=== PATIENT | female | born 1980 | race American Indian/Alaskan Native ===

== ENCOUNTER 2018-04-26 16:53 | Outpatient (CLI) | payer BC, MEDICAID ==
[2018-04-26] MEDS ORDERED: SUBLIMAZE IV PRN (16:57)
[2018-04-26] MEDS ORDERED: MINERAL OIL PO PRN (16:57)
[2018-04-26] MEDS ORDERED: XYLOCAINE 2% INFILTRATI ONE (16:57)
[2018-04-26] MEDS ORDERED: ePHEDrine SULFATE IV PRN (16:57)
[2018-04-26] MEDS ORDERED: BRETHINE SUB-Q PRN (16:57)
[2018-04-26] MEDS ORDERED: POLYCILLIN/NS 2 GM/100 ML 2 GM/100 ML BAG IV ONE (16:57)
[2018-04-26] MEDS ORDERED: PITOCin/NS 30 UNIT/500ML 30 UNITS/500 ML BAG IV SCH (17:00)
[2018-04-26] MEDS ORDERED: LACTATED RINGERS 1,000 ML IV SCH (17:00)
[2018-04-26] MEDS ORDERED: PITOCin/NS 20 UNIT/1000ML DRIP 20 UNITS/1,000 ML BAG IV SCH (17:00)
--- NOTE | 2018-04-26 17:08 | History and Physical Report ---
History of Present Illness Date of examination: 04/26/18 Chief complaint: [facility] recommends delivery for this patient @ 38+6 weeks d/t nonreassuring NST in office. Per Dr. Yi, BPP 07/03 but patient had a variable on the NST History of present illness: EDC Confirmation: 05/04/2018 Past History : 4 Term Births: 2 Premature Births: 1 Living Children: 3 Para: 3 Mult. Births: 0 Prev : 0 Aborta: 0 Elect. Ab: 0 Spont. 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 of genital herpes: no Partner hx. of genital herpes: no Rash, Viral, or Febrile illness since last LMP? no Genetic History ADVANCED MATERNAL AGE Congenital Heart Defect: Mom: no Dad: no Deric Disease: Mom: no Dad: no Thalassemia Mom: no Dad: no Neural Tube Defect Mom: no Dad: no Down's Syndrome Mom: no Dad: no Thony-Sachs Mom: no Dad: no Sickle Cell Disease/Trait Mom: no Dad: no Hemophilia Mom: no Dad: no Muscular Dystrophy Mom: no Dad: no Cystic Fibrosis Mom: no Dad: no [place] Chorea Mom: no Dad: no Mental Retardation Mom: no Dad: no Fragile X Mom: no Dad: no Other Genetic/Chromosomal Disorder Mom: no Dad: no Child w/other defect Mom: no Dad: no Enviromental Exposures Xray Exposure: no Medication, drug, or alcohol use since LMP: no Chemical/Other Exposure: no Exposure to Cat Liter: yes Hx of Parvovirus (Fifth Disease): no Occupational Exposure to Children: none Active Medications (reviewed today): None Current Allergies (reviewed today): No known allergies Past History Past Medical History: other (see HPI) Past Surgical History: other (see HPI) ACCOUNT ASSISTANT History: other (see HPI) Family/Genetic History: other (see HPI) - Obstetrical History Expected Date of Delivery: 05/04/18 Actual Gestation: 38 Week(s) 6 Day(s) : 4 Para: 3 Hx # Term Pregnancies: 2 Number of Pregnancies: 1 Spontaneous Abortions: 0 Induced : 0 Number of Living Children: 3 Medications and Allergies Allergies Allergy/AdvReac Type Severity Reaction Status Date / Time No Known Allergies Allergy Unverified 04/26/18 17:07 Review of Systems All systems: negative Results Result Diagrams: 04/26/18 21:17 All other labs normal. Assessment and Plan 28y/o @ 38+6 weeks, seeing [facility] for maternal obesity and AMA. EFW 9lbs today and NST with variables noted in FHT. Dr. Yi called office and recommended delivery or at least extended monitoring. Admission orders in EMR. - Patient Problems (1) GBS screening not performed Current Visit: Yes Status: Acute Plan to address problem: test performed in office but results not available at this time. Will treat with Ampicillin q4h until delivery (2) Non-reassuring electronic monitoring tracing Current Visit: Yes Status: Acute (3) Obesity Current Visit: Yes Status: Acute (4) Advanced maternal age (AMA) in Current Visit: Yes Status: Acute (5) 38 weeks gestation of Current Visit: Yes Status: Acute
[2018-04-26 18:10] VITALS: BP 113/64
[2018-04-26] MEDS ORDERED: AMPICILLIN/NS 1 GM/50 ML 1 GM/50 ML BAG IV SCH (21:03)
[2018-04-26 21:47] LABS: Hematocrit 33.6 % (30.3-42.9); Hemoglobin 11.1 gm/dl (10.1-14.3); Mean Corpuscular HGB Conc 33 % (30-34); Mean Corpuscular Hemoglobin 29 pg (28-32); Mean Corpuscular Volume 88 fl (79-97); Platelet Count 231 K/mm3 (140-440); Red Blood Count 3.85 M/mm3 (3.65-5.03); Red Cell Distribution Width 16.9 % (13.2-15.2)
--- NOTE | 2018-04-26 22:17 | Event Note ---
Date: 04/26/18 Patient has been in triage x5 hours, CAT 1 tracing with accels. Pt reports active movement. she states she does not want to be induced and would like to go home. Dr. Alvarado made aware, Dr. Yi called via answering service for recommendations.
--- NOTE | 2018-04-26 23:07 | Event Note ---
Date: 04/26/18 Dr. Yi did not call back despite 2 attempts through answering service. Patient is anxious to go home and insists she does not want to be induced. Dr. Alvarado updated, he agreed to let her go home with [facility] and instructions to f/ u in the office early next week.
== END 2018-04-26 23:10 | disposition home or self-care (01) ==
LOC: TRG 16:53
PROVIDERS: ATTEND Obstetrics & Gynecology
DX: O47.1 False labor at or after 37 completed weeks of gestation (principal); O99.213 Obesity complicating pregnancy, third trimester; Z3A.38 38 weeks gestation of pregnancy
CPT/HCPCS: 36415; 59025; 85027; 86592; 86850; 86900; 86901

== ENCOUNTER 2018-05-06 18:09 | Inpatient (IN) | payer BC, MEDICAID ==
--- NOTE | 2018-05-06 19:27 | History and Physical Report ---
History of Present Illness Date of examination: 05/06/18 Date of admission: 05/06/18 18:09 History of present illness: Patient admitted for induction care complicated by AMA and morbid obesity. NST in office today with deceleration Menstrual History Regularity: irregular Menses every: 28 days Duration: 3to 4 LMP: 08/23/2017 LMP reliability: definite LMP character: normal test type: urine test Date: 02/07/2018 EDC Calculations EDC Confirmation: 05/04/2018 Past History : 4 Term Births: 2 Premature Births: 1 Living Children: 3 Para: 3 Mult. Births: 0 Prev : 0 Aborta: 0 Elect. Ab: 0 Spont. 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 of genital herpes: no Partner hx. of genital herpes: no Rash, Viral, or Febrile illness since last LMP? no Genetic History ADVANCED MATERNAL AGE Congenital Heart Defect: Mom: no Dad: no Deric Disease: Mom: no Dad: no Thalassemia Mom: no Dad: no Neural Tube Defect Mom: no Dad: no Down's Syndrome Mom: no Dad: no Thony-Sachs Mom: no Dad: no Sickle Cell Disease/Trait Mom: no Dad: no Hemophilia Mom: no Dad: no Muscular Dystrophy Mom: no Dad: no Cystic Fibrosis Mom: no Dad: no [place] Chorea Mom: no Dad: no Mental Retardation Mom: no Dad: no Fragile X Mom: no Dad: no Other Genetic/Chromosomal Disorder Mom: no Dad: no Child w/other defect Mom: no Dad: no Enviromental Exposures Xray Exposure: no Medication, drug, or alcohol use since LMP: no Chemical/Other Exposure: no Exposure to Cat Liter: yes Hx of Parvovirus (Fifth Disease): no Occupational Exposure to Children: none Active Medications (reviewed today): None Current Allergies (reviewed today): No known allergies Past History Past Medical History: other (See HPI) Past Surgical History: other (See HPI) 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) Family/Genetic History: other (See HPI) Social history: other (See HPI) - Obstetrical History Expected Date of Delivery: 05/04/18 Actual Gestation: 40 Week(s) 3 Day(s) : 4 Para: 3 Hx # Term Pregnancies: 2 Number of Pregnancies: 1 Spontaneous Abortions: 0 Induced : 0 Number of Living Children: 3 Medications and Allergies Allergies Allergy/AdvReac Type Severity Reaction Status Date / Time No Known Allergies Allergy Unverified 04/26/18 17:07 Home Medications Medication Instructions Recorded Confirmed Last Taken Type Amoxicillin 1 tab PO Q8HR 05/06/18 05/06/18 05/06/18 09:00 History Ferrous Gluconate [Iron 256 MG tab] 256 mg PO QDAY 05/06/18 05/06/18 05/06/18 09 :00 History Pnv No.95/Ferrous Fum/Folic AC 1 tab PO QDAY 05/06/18 05/06/18 05/06/18 09:00 History [ Formula Tablet] - Vital Signs Vital signs: Vital Signs Pulse BP 99 H 107/64 05/06/18 18:41 05/06/18 18:41 Temp Pulse Resp BP Pulse Ox 97.8 F 80 107/64 99 05/06/18 18:43 05/06/18 19:24 05/06/18 18:41 05/06/18 19:24 - Physical Exam Breasts: Positive: deferred Lungs: Positive: Normal air movement Abdomen: Positive: normal appearance, soft Cervix: Positive: other (Per RN) Uterus: Positive: enlarged - Obstetrical FHR: category 1 Uterine Contraction Pattern: Irregular Results Result Diagrams: 05/06/18 19:43 All other labs normal. Assessment and Plan - Patient Problems (1) Post-term , 40-42 weeks of gestation Current Visit: Yes Status: Acute (2) NST (non-stress test) with decelerations Current Visit: Yes Status: Acute Plan to address problem: RN states tracing without deceleration. Will monitor. RN states exam with Partida of 4-5 .Will induce cervidil (3) Advanced maternal age (AMA) in Current Visit: No Status: Acute (4) Obesity Current Visit: No Status: Acute Qualifiers: Obesity type: due to excess calories Body mass index: BMI 38.0-38.9
[2018-05-06] MEDS ORDERED: BRETHINE IVP PRN (20:37)
[2018-05-06] MEDS ORDERED: PHENERGAN PO PRN (20:37)
[2018-05-06] MEDS ORDERED: XYLOCAINE 2% INFILTRATI ONE (20:37)
[2018-05-06] MEDS ORDERED: STADOL IV PRN (20:37)
[2018-05-06] MEDS ORDERED: PITOCin/NS 20 UNIT/1000ML DRIP 20 UNITS/1,000 ML BAG IV SCH (21:00)
[2018-05-06 21:27] LABS: Hematocrit 31.6 % (30.3-42.9); Hemoglobin 10.3 gm/dl (10.1-14.3); Mean Corpuscular HGB Conc 33 % (30-34); Mean Corpuscular Hemoglobin 29 pg (28-32); Mean Corpuscular Volume 89 fl (79-97); Platelet Count 207 K/mm3 (140-440); Red Blood Count 3.54 M/mm3 (3.65-5.03); Red Cell Distribution Width 18.1 % (13.2-15.2)
[2018-05-06] MEDS ORDERED: CERVIDIL VG ONE (21:37)
[2018-05-07] MEDS: LACTATED RINGERS 1,000 ML IV SCH ×2 (02:55→07:53)
--- NOTE | 2018-05-07 05:55 | Progress Note ---
Assessment and Plan Pt c/o ctx worsening SVE 4,70,-2 Cervidil removed. OOB for AM care Will start pitocin @ 0700. Pt agrees to POC Subjective - Subjective Date of service: 05/07/18 (Cervidil) Principal diagnosis: IUP @ 40+ weeks IOL Patient reports: movement normal, contractions Objective - Vital Signs Vital Signs: Vital Signs - 12hr 05/06/18 05/06/18 05/06/18 18:41 18:43 18:49 Temperature 97.8 F Pulse Rate 99 H 86 Respiratory Rate Blood Pressure 107/64 Blood Pressure [Right] O2 Sat by Pulse 97 Oximetry 05/06/18 05/06/18 05/06/18 18:54 18:59 19:04 Temperature Pulse Rate 93 H 91 H 95 H Respiratory Rate Blood Pressure Blood Pressure [Right] O2 Sat by Pulse 96 97 98 Oximetry 05/06/18 05/06/18 05/06/18 19:09 19:14 19:19 Temperature Pulse Rate 88 82 76 Respiratory Rate Blood Pressure Blood Pressure [Right] O2 Sat by Pulse 98 97 98 Oximetry 05/06/18 05/06/18 05/06/18 19:24 19:29 19:34 Temperature Pulse Rate 80 81 80 Respiratory Rate Blood Pressure Blood Pressure [Right] O2 Sat by Pulse 99 98 98 Oximetry 05/06/18 05/06/18 05/06/18 19:39 19:44 19:49 Temperature Pulse Rate 87 76 75 Respiratory Rate Blood Pressure Blood Pressure [Right] O2 Sat by Pulse 98 97 96 Oximetry 05/06/18 05/06/18 05/06/18 19:54 19:58 19:59 Temperature 98.5 F Pulse Rate 76 73 Respiratory 18 Rate Blood Pressure Blood Pressure [Right] O2 Sat by Pulse 97 95 Oximetry 05/06/18 05/06/18 05/06/18 20:04 20:05 20:09 Temperature Pulse Rate 79 85 81 Respiratory Rate Blood Pressure Blood Pressure [Right] O2 Sat by Pulse 95 94 97 Oximetry 05/06/18 05/06/18 05/06/18 20:14 20:19 20:24 Temperature Pulse Rate 77 67 72 Respiratory Rate Blood Pressure Blood Pressure [Right] O2 Sat by Pulse 96 98 96 Oximetry 05/06/18 05/06/18 05/06/18 20:29 20:34 20:39 Temperature Pulse Rate 76 72 73 Respiratory Rate Blood Pressure Blood Pressure [Right] O2 Sat by Pulse 97 98 96 Oximetry 05/06/18 05/06/18 05/06/18 20:44 20:49 20:54 Temperature Pulse Rate 78 73 76 Respiratory Rate Blood Pressure Blood Pressure [Right] O2 Sat by Pulse 96 97 96 Oximetry 05/06/18 05/06/18 05/06/18 21:00 21:05 21:10 Temperature Pulse Rate 70 78 78 Respiratory Rate Blood Pressure Blood Pressure [Right] O2 Sat by Pulse 99 98 98 Oximetry 05/06/18 05/06/18 05/06/18 21:15 21:20 21:33 Temperature Pulse Rate 68 73 76 Respiratory Rate Blood Pressure Blood Pressure [Right] O2 Sat by Pulse 98 99 99 Oximetry 05/06/18 05/06/18 05/06/18 21:38 21:43 21:48 Temperature Pulse Rate 75 70 74 Respiratory Rate Blood Pressure Blood Pressure [Right] O2 Sat by Pulse 98 97 97 Oximetry 05/06/18 05/06/18 05/06/18 21:53 21:58 22:03 Temperature Pulse Rate 69 72 76 Respiratory Rate Blood Pressure Blood Pressure [Right] O2 Sat by Pulse 98 97 96 Oximetry 05/06/18 05/06/18 05/06/18 22:08 22:13 22:18 Temperature Pulse Rate 67 77 65 Respiratory Rate Blood Pressure Blood Pressure [Right] O2 Sat by Pulse 98 96 97 Oximetry 05/06/18 05/06/18 05/06/18 22:23 22:28 22:33 Temperature Pulse Rate 69 76 74 Respiratory Rate Blood Pressure Blood Pressure [Right] O2 Sat by Pulse 98 98 95 Oximetry 05/06/18 05/06/18 05/06/18 22:39 22:44 22:49 Temperature Pulse Rate 71 75 74 Respiratory Rate Blood Pressure Blood Pressure [Right] O2 Sat by Pulse 98 96 97 Oximetry 05/06/18 05/06/18 05/06/18 22:54 22:59 23:00 Temperature 97.2 F L Pulse Rate 80 84 Respiratory 16 Rate Blood Pressure Blood Pressure 117/63 [Right] O2 Sat by Pulse 96 97 Oximetry 05/06/18 05/06/18 05/06/18 23:04 23:09 23:14 Temperature Pulse Rate 73 76 72 Respiratory Rate Blood Pressure 117/63 Blood Pressure [Right] O2 Sat by Pulse 96 97 97 Oximetry 05/06/18 05/06/18 05/06/18 23:19 23:24 23:29 Temperature Pulse Rate 72 72 74 Respiratory Rate Blood Pressure Blood Pressure [Right] O2 Sat by Pulse 96 96 98 Oximetry 05/06/18 05/06/18 05/06/18 23:34 23:39 23:44 Temperature Pulse Rate 74 72 81 Respiratory Rate Blood Pressure Blood Pressure [Right] O2 Sat by Pulse 97 96 97 Oximetry 05/06/18 05/06/18 05/06/18 23:49 23:54 23:59 Temperature Pulse Rate 63 63 72 Respiratory Rate Blood Pressure Blood Pressure [Right] O2 Sat by Pulse 96 97 97 Oximetry 05/07/18 05/07/18 05/07/18 00:04 00:09 00:14 Temperature Pulse Rate 67 70 69 Respiratory Rate Blood Pressure Blood Pressure [Right] O2 Sat by Pulse 95 97 97 Oximetry 05/07/18 05/07/18 05/07/18 00:19 00:24 00:29 Temperature Pulse Rate 72 72 71 Respiratory Rate Blood Pressure Blood Pressure [Right] O2 Sat by Pulse 96 97 98 Oximetry 05/07/18 05/07/18 05/07/18 00:34 00:39 00:44 Temperature Pulse Rate 76 71 77 Respiratory Rate Blood Pressure Blood Pressure [Right] O2 Sat by Pulse 96 97 97 Oximetry 05/07/18 05/07/18 05/07/18 00:49 00:54 00:59 Temperature Pulse Rate 78 72 64 Respiratory Rate Blood Pressure Blood Pressure [Right] O2 Sat by Pulse 97 96 97 Oximetry 05/07/18 05/07/18 05/07/18 01:04 01:09 01:14 Temperature Pulse Rate 68 71 68 Respiratory Rate Blood Pressure Blood Pressure [Right] O2 Sat by Pulse 97 97 97 Oximetry 05/07/18 05/07/18 05/07/18 01:23 01:28 01:33 Temperature Pulse Rate 73 80 72 Respiratory Rate Blood Pressure Blood Pressure [Right] O2 Sat by Pulse 99 97 95 Oximetry 05/07/18 05/07/18 05/07/18 01:38 01:43 01:48 Temperature Pulse Rate 67 75 75 Respiratory Rate Blood Pressure Blood Pressure [Right] O2 Sat by Pulse 97 96 97 Oximetry 0805/07/18 05/07/18 01:53 01:58 02:03 Temperature Pulse Rate 74 77 95 H Respiratory Rate Blood Pressure Blood Pressure [Right] O2 Sat by Pulse 96 96 96 Oximetry 05/07/18 05/07/18 05/07/18 02:07 02:08 02:13 Temperature Pulse Rate 69 71 71 Respiratory Rate Blood Pressure Blood Pressure [Right] O2 Sat by Pulse 94 96 95 Oximetry 05/07/18 05/07/18 05/07/18 02:18 02:21 02:23 Temperature Pulse Rate 72 71 72 Respiratory Rate Blood Pressure Blood Pressure [Right] O2 Sat by Pulse 95 94 95 Oximetry 05/07/18 05/07/18 05/07/18 02:28 02:31 02:33 Temperature Pulse Rate 76 68 68 Respiratory Rate Blood Pressure Blood Pressure [Right] O2 Sat by Pulse 97 94 98 Oximetry 05/07/18 05/07/18 05/07/18 02:38 02:43 02:48 Temperature Pulse Rate 75 73 80 Respiratory Rate Blood Pressure Blood Pressure [Right] O2 Sat by Pulse 97 97 97 Oximetry 05/07/18 05/07/18 05/07/18 02:51 02:53 02:55 Temperature 97.7 F Pulse Rate 72 80 Respiratory 16 Rate Blood Pressure 110/59 Blood Pressure [Right] O2 Sat by Pulse 98 Oximetry 05/07/18 05/07/18 05/07/18 02:58 03:03 03:08 Temperature Pulse Rate 74 71 76 Respiratory Rate Blood Pressure Blood Pressure [Right] O2 Sat by Pulse 96 96 95 Oximetry 05/07/18 05/07/18 05/07/18 03:11 03:13 03:17 Temperature Pulse Rate 71 75 73 Respiratory Rate Blood Pressure Blood Pressure [Right] O2 Sat by Pulse 93 94 94 Oximetry 05/07/18 05/07/18 05/07/18 03:18 03:23 03:24 Temperature Pulse Rate 84 74 88 Respiratory Rate Blood Pressure Blood Pressure [Right] O2 Sat by Pulse 96 95 94 Oximetry 05/07/18 05/07/18 05/07/18 03:28 03:30 03:33 Temperature Pulse Rate 81 71 71 Respiratory Rate Blood Pressure Blood Pressure [Right] O2 Sat by Pulse 96 94 95 Oximetry 05/07/18 05/07/18 05/07/18 03:37 03:38 03:43 Temperature Pulse Rate 85 77 90 Respiratory Rate Blood Pressure Blood Pressure [Right] O2 Sat by Pulse 94 95 94 Oximetry 05/07/18 05/07/18 05/07/18 03:48 03:49 03:53 Temperature Pulse Rate 86 88 78 Respiratory Rate Blood Pressure Blood Pressure [Right] O2 Sat by Pulse 96 93 95 Oximetry 05/07/18 05/07/18 05/07/18 03:58 03:59 04:03 Temperature Pulse Rate 69 70 69 Respiratory Rate Blood Pressure Blood Pressure [Right] O2 Sat by Pulse 95 94 96 Oximetry 05/07/18 05/07/18 05/07/18 04:07 04:08 04:13 Temperature Pulse Rate 82 74 82 Respiratory Rate Blood Pressure Blood Pressure [Right] O2 Sat by Pulse 94 97 97 Oximetry 05/07/18 05/07/18 05/07/18 04:18 04:23 04:25 Temperature Pulse Rate 81 98 H 87 Respiratory Rate Blood Pressure Blood Pressure [Right] O2 Sat by Pulse 96 97 93 Oximetry 05/07/18 05/07/18 05/07/18 04:28 04:31 04:33 Temperature Pulse Rate 73 74 76 Respiratory Rate Blood Pressure Blood Pressure [Right] O2 Sat by Pulse 93 94 94 Oximetry 05/07/18 05/07/18 05/07/18 04:38 04:43 04:45 Temperature Pulse Rate 74 72 80 Respiratory Rate Blood Pressure Blood Pressure [Right] O2 Sat by Pulse 95 95 94 Oximetry 05/07/18 05/07/18 05/07/18 04:48 04:50 04:53 Temperature Pulse Rate 80 82 77 Respiratory Rate Blood Pressure Blood Pressure [Right] O2 Sat by Pulse 94 94 96 Oximetry 05/07/18 05/07/18 05/07/18 04:58 05:03 05:08 Temperature Pulse Rate 79 74 78 Respiratory Rate Blood Pressure Blood Pressure [Right] O2 Sat by Pulse 96 94 93 Oximetry 05/07/18 05/07/18 05/07/18 05:12 05:13 05:18 Temperature Pulse Rate 72 76 79 Respiratory Rate Blood Pressure Blood Pressure [Right] O2 Sat by Pulse 94 93 93 Oximetry 05/07/18 05/07/18 05/07/18 05:21 05:23 05:28 Temperature Pulse Rate 75 73 71 Respiratory Rate Blood Pressure Blood Pressure [Right] O2 Sat by Pulse 94 94 96 Oximetry 05/07/18 05/07/18 05/07/18 05:31 05:33 05:38 Temperature Pulse Rate 73 78 75 Respiratory Rate Blood Pressure Blood Pressure [Right] O2 Sat by Pulse 94 94 89 Oximetry 05/07/18 05/07/18 05:43 05:48 Temperature Pulse Rate 78 80 Respiratory Rate Blood Pressure Blood Pressure [Right] O2 Sat by Pulse 89 95 Oximetry - Exam Breasts: deferred Cardiovascular: Regular rate Lungs: Normal air movement Abdomen: Present: normal appearance, soft. Absent: distention, tenderness Uterus: Present: normal FHR: auscultation normal Uterine Contraction Monitor Mode: External Cervical Dilatation: 4 (cervidil removed) Cervical Effacement Percentage: 70 station: -2 Uterine Contraction Pattern: Regular Uterine Tone Measurement Phase: Resting Uterine Contraction Intensity: Moderate Extremities: edema Deep Tendon Reflex Grade: Normal +2 - Labs Labs: Abnormal Labs 05/06/18 19:43 RBC 3.54 L RDW 18.1 H Laboratory Results - last 24 hr 05/06/18 05/06/18 19:43 19:43 WBC 5.7 RBC 3.54 L Hgb 10.3 Hct 31.6 MCV 89 MCH 29 MCHC 33 RDW 18.1 H Plt Count 207 Blood Type O POSITIVE Antibody Screen Negative
[2018-05-07] MEDS ORDERED: PITOCin/NS 30 UNIT/500ML 30 UNITS/500 ML BAG IV SCH (07:00)
--- NOTE | 2018-05-07 10:40 | Progress Note ---
Assessment and Plan Finishing epidural on my arrival SVE 10,100,0 BBOW Variables with ctx Anticipate delivery. Subjective - Subjective Date of service: 05/07/18 (epidural placed) Principal diagnosis: IUP @ 40+ weeks IOL Patient reports: movement normal, contractions Objective - Vital Signs Vital Signs: Vital Signs - 12hr 05/06/18 05/06/18 05/06/18 22:44 22:49 22:54 Temperature Pulse Rate 75 74 80 Respiratory Rate Blood Pressure Blood Pressure [Right] O2 Sat by Pulse 96 97 96 Oximetry 05/06/18 05/06/18 05/06/18 22:59 23:00 23:04 Temperature 97.2 F L Pulse Rate 84 73 Respiratory 16 Rate Blood Pressure 117/63 Blood Pressure 117/63 [Right] O2 Sat by Pulse 97 96 Oximetry 05/06/18 05/06/18 05/06/18 23:09 23:14 23:19 Temperature Pulse Rate 76 72 72 Respiratory Rate Blood Pressure Blood Pressure [Right] O2 Sat by Pulse 97 97 96 Oximetry 05/06/18 05/06/18 05/06/18 23:24 23:29 23:34 Temperature Pulse Rate 72 74 74 Respiratory Rate Blood Pressure Blood Pressure [Right] O2 Sat by Pulse 96 98 97 Oximetry 05/06/18 05/06/18 05/06/18 23:39 23:44 23:49 Temperature Pulse Rate 72 81 63 Respiratory Rate Blood Pressure Blood Pressure [Right] O2 Sat by Pulse 96 97 96 Oximetry 05/06/18 05/06/18 05/07/18 23:54 23:59 00:04 Temperature Pulse Rate 63 72 67 Respiratory Rate Blood Pressure Blood Pressure [Right] O2 Sat by Pulse 97 97 95 Oximetry 05/07/18 05/07/18 05/07/18 00:09 00:14 00:19 Temperature Pulse Rate 70 69 72 Respiratory Rate Blood Pressure Blood Pressure [Right] O2 Sat by Pulse 97 97 96 Oximetry 05/07/18 05/07/18 05/07/18 00:24 00:29 00:34 Temperature Pulse Rate 72 71 76 Respiratory Rate Blood Pressure Blood Pressure [Right] O2 Sat by Pulse 97 98 96 Oximetry 05/07/18 05/07/18 05/07/18 00:39 00:44 00:49 Temperature Pulse Rate 71 77 78 Respiratory Rate Blood Pressure Blood Pressure [Right] O2 Sat by Pulse 97 97 97 Oximetry 05/07/18 05/07/18 05/07/18 00:54 00:59 01:04 Temperature Pulse Rate 72 64 68 Respiratory Rate Blood Pressure Blood Pressure [Right] O2 Sat by Pulse 96 97 97 Oximetry 05/07/18 05/07/18 05/07/18 01:09 01:14 01:23 Temperature Pulse Rate 71 68 73 Respiratory Rate Blood Pressure Blood Pressure [Right] O2 Sat by Pulse 97 97 99 Oximetry 05/07/18 05/07/18 05/07/18 01:28 01:33 01:38 Temperature Pulse Rate 80 72 67 Respiratory Rate Blood Pressure Blood Pressure [Right] O2 Sat by Pulse 97 95 97 Oximetry 05/07/18 05/07/18 05/07/18 01:43 01:48 01:53 Temperature Pulse Rate 75 75 74 Respiratory Rate Blood Pressure Blood Pressure [Right] O2 Sat by Pulse 96 97 96 Oximetry 05/07/18 05/07/18 05/07/18 01:58 02:03 02:07 Temperature Pulse Rate 77 95 H 69 Respiratory Rate Blood Pressure Blood Pressure [Right] O2 Sat by Pulse 96 96 94 Oximetry 05/07/18 05/07/18 05/07/18 02:08 02:13 02:18 Temperature Pulse Rate 71 71 72 Respiratory Rate Blood Pressure Blood Pressure [Right] O2 Sat by Pulse 96 95 95 Oximetry 05/07/18 05/07/18 05/07/18 02:21 02:23 02:28 Temperature Pulse Rate 71 72 76 Respiratory Rate Blood Pressure Blood Pressure [Right] O2 Sat by Pulse 94 95 97 Oximetry 05/07/18 05/07/18 05/07/18 02:31 02:33 02:38 Temperature Pulse Rate 68 68 75 Respiratory Rate Blood Pressure Blood Pressure [Right] O2 Sat by Pulse 94 98 97 Oximetry 05/07/18 05/07/18 05/07/18 02:43 02:48 02:51 Temperature 97.7 F Pulse Rate 73 80 Respiratory 16 Rate Blood Pressure Blood Pressure [Right] O2 Sat by Pulse 97 97 Oximetry 05/07/18 05/07/18 05/07/18 02:53 02:55 02:58 Temperature Pulse Rate 72 80 74 Respiratory Rate Blood Pressure 110/59 Blood Pressure [Right] O2 Sat by Pulse 98 96 Oximetry 08/05/07/18 05/07/18 03:03 03:08 03:11 Temperature Pulse Rate 71 76 71 Respiratory Rate Blood Pressure Blood Pressure [Right] O2 Sat by Pulse 96 95 93 Oximetry 05/07/18 05/07/18 05/07/18 03:13 03:17 03:18 Temperature Pulse Rate 75 73 84 Respiratory Rate Blood Pressure Blood Pressure [Right] O2 Sat by Pulse 94 94 96 Oximetry 05/07/18 05/07/18 05/07/18 03:23 03:24 03:28 Temperature Pulse Rate 74 88 81 Respiratory Rate Blood Pressure Blood Pressure [Right] O2 Sat by Pulse 95 94 96 Oximetry 05/07/18 05/07/18 05/07/18 03:30 03:33 03:37 Temperature Pulse Rate 71 71 85 Respiratory Rate Blood Pressure Blood Pressure [Right] O2 Sat by Pulse 94 95 94 Oximetry 05/07/18 05/07/18 05/07/18 03:38 03:43 03:48 Temperature Pulse Rate 77 90 86 Respiratory Rate Blood Pressure Blood Pressure [Right] O2 Sat by Pulse 95 94 96 Oximetry 05/07/18 05/07/18 05/07/18 03:49 03:53 03:58 Temperature Pulse Rate 88 78 69 Respiratory Rate Blood Pressure Blood Pressure [Right] O2 Sat by Pulse 93 95 95 Oximetry 05/07/18 05/07/18 05/07/18 03:59 04:03 04:07 Temperature Pulse Rate 70 69 82 Respiratory Rate Blood Pressure Blood Pressure [Right] O2 Sat by Pulse 94 96 94 Oximetry 05/07/18 05/07/18 05/07/18 04:08 04:13 04:18 Temperature Pulse Rate 74 82 81 Respiratory Rate Blood Pressure Blood Pressure [Right] O2 Sat by Pulse 97 97 96 Oximetry 05/07/18 05/07/18 05/07/18 04:23 04:25 04:28 Temperature Pulse Rate 98 H 87 73 Respiratory Rate Blood Pressure Blood Pressure [Right] O2 Sat by Pulse 97 93 93 Oximetry 05/07/18 05/07/18 05/07/18 04:31 04:33 04:38 Temperature Pulse Rate 74 76 74 Respiratory Rate Blood Pressure Blood Pressure [Right] O2 Sat by Pulse 94 94 95 Oximetry 05/07/18 05/07/18 05/07/18 04:43 04:45 04:48 Temperature Pulse Rate 72 80 80 Respiratory Rate Blood Pressure Blood Pressure [Right] O2 Sat by Pulse 95 94 94 Oximetry 05/07/18 05/07/18 05/07/18 04:50 04:53 04:58 Temperature Pulse Rate 82 77 79 Respiratory Rate Blood Pressure Blood Pressure [Right] O2 Sat by Pulse 94 96 96 Oximetry 05/07/18 05/07/18 05/07/18 05:03 05:08 05:12 Temperature Pulse Rate 74 78 72 Respiratory Rate Blood Pressure Blood Pressure [Right] O2 Sat by Pulse 94 93 94 Oximetry 05/07/18 05/07/18 05/07/18 05:13 05:18 05:21 Temperature Pulse Rate 76 79 75 Respiratory Rate Blood Pressure Blood Pressure [Right] O2 Sat by Pulse 93 93 94 Oximetry 05/07/18 05/07/18 05/07/18 05:23 05:28 05:31 Temperature Pulse Rate 73 71 73 Respiratory Rate Blood Pressure Blood Pressure [Right] O2 Sat by Pulse 94 96 94 Oximetry 05/07/18 05/07/18 05/07/18 05:33 05:38 05:43 Temperature Pulse Rate 78 75 78 Respiratory Rate Blood Pressure Blood Pressure [Right] O2 Sat by Pulse 94 89 89 Oximetry 05/07/18 05/07/18 05/07/18 05:48 06:52 07:54 Temperature 97.3 F L Pulse Rate 80 88 71 Respiratory 22 Rate Blood Pressure Blood Pressure 126/75 [Right] O2 Sat by Pulse 95 97 98 Oximetry 05/07/18 05/07/18 05/07/18 08:08 08:10 08:13 Temperature Pulse Rate 78 75 70 Respiratory Rate Blood Pressure Blood Pressure [Right] O2 Sat by Pulse 96 94 94 Oximetry 05/07/18 05/07/18 05/07/18 08:15 08:18 08:21 Temperature Pulse Rate 70 89 75 Respiratory Rate Blood Pressure Blood Pressure [Right] O2 Sat by Pulse 93 96 94 Oximetry 05/07/18 05/07/18 05/07/18 08:23 08:28 08:30 Temperature Pulse Rate 73 71 65 Respiratory Rate Blood Pressure Blood Pressure [Right] O2 Sat by Pulse 94 86 91 Oximetry 05/07/18 05/07/18 05/07/18 08:35 08:36 10:23 Temperature Pulse Rate 58 L 78 Respiratory Rate Blood Pressure Blood Pressure [Right] O2 Sat by Pulse 49 L 69 L 99 Oximetry 05/07/18 05/07/18 05/07/18 10:24 10:26 10:28 Temperature Pulse Rate 74 74 77 Respiratory Rate Blood Pressure 134/72 125/57 128/60 Blood Pressure [Right] O2 Sat by Pulse 98 Oximetry - Exam Breasts: deferred Cardiovascular: Regular rate Lungs: Normal air movement Abdomen: Present: normal appearance, soft. Absent: distention, tenderness Uterus: Present: normal FHR: auscultation normal, category 1 Uterine Contraction Monitor Mode: External Cervical Dilatation: 10 Cervical Effacement Percentage: 100 station: 0 Uterine Contraction Pattern: Regular Uterine Tone Measurement Phase: Resting Uterine Contraction Intensity: Moderate Extremities: edema Deep Tendon Reflex Grade: Normal +2 - Labs Labs: Abnormal Labs 05/06/18 19:43 RBC 3.54 L RDW 18.1 H Laboratory Results - last 24 hr 05/06/18 05/06/18 19:43 19:43 WBC 5.7 RBC 3.54 L Hgb 10.3 Hct 31.6 MCV 89 MCH 29 MCHC 33 RDW 18.1 H Plt Count 207 Blood Type O POSITIVE Antibody Screen Negative
[2018-05-07] MEDS ORDERED: NARCAN 2 MG/2 ML IV PRN (11:00)
[2018-05-07] MEDS ORDERED: fentaNYL-BUPIV 2 MCG/ML-0.125% 200 MCG/100 ML BAG EPIDURAL SCH (11:00)
[2018-05-07] MEDS ORDERED: DULCOLAX PR PRN (11:12)
[2018-05-07] MEDS ORDERED: BENADRYL PO PRN (11:12)
[2018-05-07] MEDS ORDERED: LANSINOH TP PRN (11:12)
[2018-05-07] MEDS ORDERED: TUCKS PAD TP PRN (11:12)
[2018-05-07] MEDS ORDERED: TYLENOL PO PRN (11:12)
[2018-05-07] MEDS ORDERED: MILK OF MAGNESIA PO PRN (11:12)
[2018-05-07] MEDS ORDERED: ZOFRAN IV PRN (11:12)
--- NOTE | 2018-05-07 11:19 | Procedure Note ---
OB Delivery Note - Delivery Date of Delivery: 05/07/18 Strike Off Machine Operator: DAISY CANDELARIA Estimated blood loss: 300cc - Vaginal Delivery presentation: vertex Delivery position: OA Intrapartum events: none Delivery induction: none Delivery augmentation: pitocin Delivery monitor: external FHT, external uterine Route of delivery: Delivery placenta: spontaneous Delivery cord: nuchal cord, 3 umbilical vessels Episiotomy: none Delivery laceration: none Anesthesia: epidural Delivery comments: live born male over intact perineum. CAN X 1 del through Baby skin to skin on mom's abdomen. Cord blood obtained Placenta and membrane del complete and intact, 3 vessel cord. Pit IVFs 8/9, EBL 300, Wgt 8-9 Mom and baby remain LDR stable. - Infant A at 1 minute: 8 at 5 minutes: 9 Infant Gender: Male (wgt 8-9)
[2018-05-07] MEDS ORDERED: SODIUM CHLORIDE FLUSH SYRINGE 10 ML IV SCH (12:00)
[2018-05-07] MEDS: MOTRIN PO SCH ×2 (13:51→21:45)
[2018-05-07] MEDS ORDERED: MOTRIN PO SCH (14:00)
[2018-05-07] MEDS: COLACE PO SCH (21:45)
[2018-05-07 23:26] LABS: Hematocrit 32.9 % (30.3-42.9); Hemoglobin 10.9 gm/dl (10.1-14.3)
[2018-05-08] MEDS ORDERED: BOOSTRIX IM ONE (06:00)
--- NOTE | 2018-05-08 08:15 | Progress Note ---
Assessment and Plan Patient doing well, w/o complaints. Lochia scant, afebrile, VSS mostly normal, slightly elevated b/p's x2 noted 130-140/70's, fundus firm. H&H 10.9/32.9. . Will consider d/c home this afternoon if remains normotensive. - Patient Problems (1) Spontaneous vaginal delivery Current Visit: Yes Status: Acute Subjective - Subjective Date of service: 05/08/18 Principal diagnosis: day #1 s/p Patient reports: appetite normal, voiding normally, pain well controlled, ambulating normally, no dizzy ambulation, no nauseated : doing well, nursing well Objective - Vital Signs Latest vital signs: Vital Signs Temp Pulse Resp BP BP Pulse Ox 05/08/18 00:00 98.0 F 68 18 138/73 05/07/18 20:10 98.2 F 75 18 103/50 05/07/18 16:33 98.8 F 66 18 140/75 05/07/18 13:10 98.0 F 78 18 117/63 05/07/18 11:23 82 122/64 05/07/18 10:28 77 128/60 98 05/07/18 10:26 74 125/57 05/07/18 10:24 74 134/72 05/07/18 10:23 78 99 05/07/18 08:36 58 L 69 L 05/07/18 08:35 49 L 05/07/18 08:30 65 91 05/07/18 08:28 71 86 05/07/18 08:23 73 94 05/07/18 08:21 75 94 05/07/18 08:18 89 96 05/07/18 08:15 70 93 Intake and Output 05/07/18 05/08/18 05/08/18 23:59 07:59 15:59 Intake Total 240 120 Output Total 3 800 Balance 237 -680 Intake: Oral 240 120 Output: Urine 3 800 Void 800 Other: Total, Intake Amount 240 120 Total, Output Amount 800 Voiding Method Toilet # Voids 3 Void 0 - Exam Breasts: Present: normal, Cardiovascular: Present: Regular rate Lungs: Present: Clear to auscultation, Normal air movement Abdomen: Present: normal appearance, soft Vulva: both: normal Uterus: Present: normal, firm, fundal height at umbilicus Extremities: Present: normal Deep Tendon Reflex Grade: Normal +2
[2018-05-08] MEDS ORDERED: M-M-R II VACCINE SUB-Q ONE (11:12)
[2018-05-08] MEDS: COLACE PO SCH (11:12)
--- NOTE | 2018-05-08 14:24 | Discharge Summary ---
Providers - Providers Date of Admission: 05/06/18 18:09 Date of discharge: 05/08/18 (desires) Attending physician: ZULEMA GILLESPIE Primary care physician: ZULEMA GILLESPIE Hospitalization Reason for admission: induction of labor Delivery: Episiotomy: none Laceration: none Other procedures: none complications: none Discharge diagnosis: IUP at term delivered baby: male Hospital course: IOL for nonreassuring fht, vaginal and course Condition at discharge: Good Disposition: DC-01 TO HOME OR SELFCARE - Discharge Diagnoses (1) Spontaneous vaginal delivery Status: Acute Plan - Discharge Medications Prescriptions: Ibuprofen [Motrin 800 MG tab] 800 mg PO Q8HR PRN #30 tablet PRN Reason: Pain Lidocain2.5%/Prilocai2.5% [Emla] 5 gm TP ONCE PRN #1 tube PRN Reason: Pain - Provider Discharge Summary Activity: routine, no sex for 6 weeks, no heavy lifting 4 weeks, no strenuous exercise Diet: routine Instructions: routine Additional instructions: [] Smoking cessation referral if applicable(refer to patient education folder for contact #) [] Refer to [facility]'s [facility] Booklet Call your doctor immediately for: * Fever > 100.5 * Heavy vaginal bleeding ( >1 pad per hour) * Severe persistent headache * Shortness of breath * Reddened, hot, painful area to leg or breast * Drainage or odor from incision. * Keep incision clean and dry at all times and follow doctor's instructions regarding bathing/showering - Follow up plan Follow up: ZULEMA GILLESPIE MD [Primary Care Provider] - 7 Days (Congratulations! Please call [phone] to schedule your son's circumcision in 7 days and your visit in 4 weeks. Bring EMLA cream to your son's appointment and await further teaching. Call for any questions or concerns. )
[2018-05-08] MEDS: MOTRIN PO SCH (20:00)
[2018-05-09] MEDS: MOTRIN PO SCH ×2 (09:46→19:07)
[2018-05-09] MEDS: COLACE PO SCH (09:47)
[2018-05-09 17:03] VITALS: BP 117/68
== END 2018-05-09 18:10 | disposition home or self-care (01) | DRG 775 ==
LOC: LD 18:09 → OB 05-07 13:10
PROVIDERS: ADMIT Obstetrics & Gynecology; ATTEND Obstetrics & Gynecology
PROC: 10E0XZZ Delivery of Products of Conception, External Approach (ICD-10-PCS; principal; 2018-05-07)
PROC: 3E0R3BZ Introduction of Anesthetic Agent into Spinal Canal, Percutaneous Approach (ICD-10-PCS; 2018-05-07)
PROC: 00HU33Z Insertion of Infusion Device into Spinal Canal, Percutaneous Approach (ICD-10-PCS; 2018-05-07)
PROC: 3E0P7VZ Introduction of Hormone into Female Reproductive, Via Natural or Artificial Opening (ICD-10-PCS; 2018-05-07)
DX: O48.0 Post-term pregnancy (principal); O69.81X0 Labor and delivery complicated by cord around neck, without compression, not applicable or unspecified; O76 Abnormality in fetal heart rate and rhythm complicating labor and delivery; O99.214 Obesity complicating childbirth; E66.01 Morbid (severe) obesity due to excess calories; Z3A.40 40 weeks gestation of pregnancy; Z37.0 Single live birth; Z68.38 Body mass index [BMI] 38.0-38.9, adult
CPT/HCPCS: 36415; 85014; 85018; 85027; 86592; 86850; 86900; 86901; 99211; A6250; G0463; J2590; J7120